=== PATIENT | male | born 1960 | race Two or more races ===

== ENCOUNTER 2024-06-26 17:57 | Inpatient (IN) | payer MEDICAID, OTHER ==
[~2024-06-26] VITALS: Ht 165.1 cm; Wt 94.5 kg
[2024-06-26] MEDS: IBUPROFEN 800 MG TAB PO ONE (21:12)
[2024-06-26] MEDS: HYDROcodone-ACET 10/325MG TAB PO ONE (23:32)
[2024-06-27] VITALS (8 sets, daily range): BP systolic 134–166; BP diastolic 61–80; PULSE 58–73; RESP 16–20; TEMP 97.7–98.9; O2SAT 95–98
[2024-06-27] MEDS: cefTRIAXone 1GM/50ML D5W 50 ML IV ONE (00:04)
[2024-06-27] MEDS ORDERED: ACETAMINOPHEN 325 MG TAB PO PRN (00:30)
[2024-06-27] MEDS ORDERED: DEXTROSE (50%) 50ML SYRG IV PRN ×2 (00:30→16:15)
[2024-06-27] MEDS ORDERED: ONDANSETRON HCL 4 MG/2 ML VIAL IV PRN (00:30)
[2024-06-27] MEDS ORDERED: TEMAZEPAM 15 MG CAP PO PRN (00:30)
[2024-06-27] MEDS ORDERED: VANCOMYCIN PER PHARMACY 0 MG IV SCH ×2 (00:30)
[2024-06-27 00:32] LABS: Basophils # (auto) 0 10 ^3/uL (0-0.2); Basophils % (auto) 0.6 % (0.0-2.0); Eosinophils # (auto) 0.1 10 ^3/uL (0-0.8); Eosinophils % (auto) 0.7 % (0.0-7.0); Hematocrit 33.8 % (41.0-53.0); Hemoglobin 11.7 g/dL (13.5-17.5); Lymphocytes # (auto) 1.9 10 ^3/uL (0.4-5.4); Lymphocytes % (auto) 25.1 % (10.0-50.0); Mean Corpuscular Hemoglobin 30.7 pg (28.0-32.0); Mean Corpuscular Hgb Conc. 34.5 g/dL (32.0-36.0); Mean Corpuscular Volume 88.9 fL (80.0-100.0); Monocytes # (auto) 0.7 10 ^3/uL (0-1.3); Monocytes % (auto) 8.7 % (0.0-12.0); Neutrophils # (auto) 4.9 10 ^3/uL (1.6-8.6); Neutrophils % (auto) 64.9 % (37.0-80.0); Nucleated Red Blood Cells % 0.1 %; Red Cell Distribution Width 13.7 % (11.8-14.3); White Blood Cell 7.5 10^3/uL (4.4-10.8)
[2024-06-27 00:41] LABS: Chloride 105 mmol/L (98-107); Potassium 4.1 mmol/L (3.5-5.1); Sodium 135 mmol/L (136-145)
[2024-06-27 00:42] LABS: Anion Gap 7 (5-15); Calcium 8.8 mg/dL (8.7-10.4); Carbon Dioxide 23 mmol/L (20-30)
[2024-06-27 00:47] LABS: BUN/Creatinine Ratio 15.1 (10.0-20.0); Blood Urea Nitrogen 13 mg/dL (9-23); Glucose 245 mg/dL (74-106)
[2024-06-27] MEDS: VANCOMYCIN 1GM/200ML 200 ML IV ONE (01:37)
[2024-06-27] MEDS: ACCU-CHEK COMFORT CURVE STRIP VI SCH ×2 (06:33→17:40)
[2024-06-27] MEDS: InsuLIN REG 1unit/0.01ml Soln (100units/ml) SC SCH ×2 (06:36→17:38)
[2024-06-27] MEDS: cefTRIAXone 1GM/50ML D5W 50 ML IV SCH (08:52)
[2024-06-27] MEDS: HYDROcodone-ACET 5/325MG TAB PO PRN (10:51)
[2024-06-27] MEDS ORDERED: VANCOMYCIN 1GM/200ML 200 ML IV SCH (14:00)
[2024-06-27] MEDS: hydrALAZINE HCL 20 MG/ML VL IV PRN (18:16)
[2024-06-27] MEDS ORDERED: LISI20TA56 PO (20:41)
[2024-06-27] MEDS ORDERED: METF-370 PO (20:41)
[2024-06-28 01:00] VITALS: BP 148/76; PULSE 73; RESP 20; TEMP 98.7; O2SAT 95
[2024-06-28 05:00] VITALS: BP 154/53; PULSE 65; RESP 19; TEMP 98.2; O2SAT 97
[2024-06-28 06:07] LABS: Basophils # (auto) 0 10 ^3/uL (0-0.2); Basophils % (auto) 0.3 % (0.0-2.0); Eosinophils # (auto) 0 10 ^3/uL (0-0.8); Eosinophils % (auto) 0.5 % (0.0-7.0); Hematocrit 36.3 % (41.0-53.0); Hemoglobin 12.6 g/dL (13.5-17.5); Lymphocytes # (auto) 1.9 10 ^3/uL (0.4-5.4); Lymphocytes % (auto) 22.8 % (10.0-50.0); Mean Corpuscular Hgb Conc. 34.7 g/dL (32.0-36.0); Mean Corpuscular Volume 89.2 fL (80.0-100.0); Monocytes # (auto) 0.6 10 ^3/uL (0-1.3); Monocytes % (auto) 7.8 % (0.0-12.0); Neutrophils # (auto) 5.7 10 ^3/uL (1.6-8.6); Neutrophils % (auto) 68.6 % (37.0-80.0); Red Blood Cells 4.07 10^6/uL (4.5-5.90); Red Cell Distribution Width 13.4 % (11.8-14.3); White Blood Cell 8.3 10^3/uL (4.4-10.8)
[2024-06-28 06:13] LABS: Chloride 106 mmol/L (98-107); Sodium 137 mmol/L (136-145)
[2024-06-28 06:14] LABS: Anion Gap 9 (5-15); Carbon Dioxide 22 mmol/L (20-30)
[2024-06-28 06:15] LABS: Calcium 9.4 mg/dL (8.7-10.4)
[2024-06-28 06:19] LABS: Glucose 199 mg/dL (74-106)
[2024-06-28 06:20] LABS: BUN/Creatinine Ratio 9.6 (10.0-20.0); Blood Urea Nitrogen 7 mg/dL (9-23)
[2024-06-28] MEDS ORDERED: GLIP5TAB21 PO (07:35)
[2024-06-28 08:49] VITALS: BP 151/74; PULSE 58; RESP 16; TEMP 98.4; O2SAT 96
[2024-06-28] MEDS: DOCUSATE SOD 100 MG CAP PO ONE (12:46)
[2024-06-28] MEDS: LACTULOSE 20Gm/30ML SOLN PO ONE (12:46)
[2024-06-28 13:00] VITALS: BP 142/67; PULSE 57; RESP 17; TEMP 98.6; O2SAT 96
[2024-06-28 17:02] VITALS: BP 148/81; PULSE 64; RESP 19; TEMP 97.7; O2SAT 98
[2024-06-28 21:00] VITALS: BP 165/64; PULSE 63; RESP 18; TEMP 98.4; O2SAT 92
[2024-06-28] MEDS: DOCUSATE SOD 100 MG CAP PO SCH (21:42)
[2024-06-29 01:00] VITALS: BP 141/61; PULSE 64; RESP 20; TEMP 98.7; O2SAT 98
[2024-06-29 04:59] VITALS: BP 145/70; PULSE 81; RESP 18; TEMP 98.5; O2SAT 97
[2024-06-29 09:00] VITALS: BP 149/64; PULSE 76; RESP 17; TEMP 98.7; O2SAT 97
[2024-06-29] MEDS ORDERED: GLIP5TAB21 PO (12:40)
[2024-06-29] MEDS ORDERED: AUG875T PO (12:40)
[2024-06-29] MEDS ORDERED: METF-370 PO (12:40)
[2024-06-29] MEDS ORDERED: LISI20TA56 PO (12:40)
[2024-06-29 13:07] VITALS: BP 146/53; PULSE 65; RESP 17; TEMP 98; O2SAT 97
== END 2024-06-29 15:35 | disposition home or self-care (01) | DRG 113 ==
LOC: ER 17:57 → OVERFLOW 06-27 00:28 → WEST WING 06-27 03:20
PROVIDERS: ADMIT Internal Medicine Geriatric Medicine; ATTEND Internal Medicine Geriatric Medicine
DX: H70.002 Acute mastoiditis without complications, left ear (principal); E11.9 Type 2 diabetes mellitus without complications; E66.9 Obesity, unspecified; I10 Essential (primary) hypertension; M10.9 Gout, unspecified; Z68.34 Body mass index [BMI] 34.0-34.9, adult
CPT/HCPCS: 36415; 70450; 70486; 80048; 80202; 82962; 83036; 83605; 85025; G0378; J1815

== ENCOUNTER 2024-08-22 12:13 | Emergency (ER) | payer MEDICAID ==
[~2024-08-22] VITALS: Ht 165.1 cm; Wt 87.0 kg
[~2024-08-22 12:13] MED LIST: AUG875T PO; GLIP5TAB21 PO; LISI20TA56 PO; METF-370 PO
[2024-08-22 13:31] LABS: Urine Bacteria None Seen /hpf (None Seen)
[2024-08-22 13:55] LABS: Urine Blood TRACE /uL (Negative); Urine Clarity Clear (Clear); Urine Color Yellow (Yellow); Urine Protein, UAD 3+ (Negative); Urine Specific Gravity 1.017 (1.001-1.035); Urine Urobilinogen Normal (Negative); Urine WBC 5 /hpf (0 - 3); Urine pH 5.5 (5.0-9.0)
[2024-08-22 14:30] LABS: Basophils # (auto) 0 10 ^3/uL (0-0.2); Basophils % (auto) 0.5 % (0.0-2.0); Eosinophils # (auto) 0.1 10 ^3/uL (0-0.8); Eosinophils % (auto) 1.2 % (0.0-7.0); Hematocrit 36.8 % (41.0-53.0); Lymphocytes # (auto) 2.1 10 ^3/uL (0.4-5.4); Lymphocytes % (auto) 22.7 % (10.0-50.0); Mean Corpuscular Hemoglobin 30.2 pg (28.0-32.0); Mean Corpuscular Hgb Conc. 35.3 g/dL (32.0-36.0); Mean Corpuscular Volume 85.5 fL (80.0-100.0); Monocytes # (auto) 0.6 10 ^3/uL (0-1.3); Monocytes % (auto) 6.7 % (0.0-12.0); Neutrophils # (auto) 6.5 10 ^3/uL (1.6-8.6); Neutrophils % (auto) 68.9 % (37.0-80.0); Nucleated Red Blood Cells % 0.1 %; Platelet Count (auto) 199 10^3/uL (140-450); Red Cell Distribution Width 13.7 % (11.8-14.3); White Blood Cell 9.4 10^3/uL (4.4-10.8)
[2024-08-22 15:10] LABS: Alanine Aminotransferase 20 U/L (7-40); Albumin 4.1 g/dL (3.2-4.8); Alkaline Phosphatase 88 U/L (46-116); Anion Gap 7 (5-15); Aspartate Aminotransferase 16 U/L (13-40); BUN/Creatinine Ratio 20.2 (10.0-20.0); Blood Urea Nitrogen 17 mg/dL (9-23); Calcium 9.3 mg/dL (8.7-10.4); Carbon Dioxide 24 mmol/L (20-30); Chloride 109 mmol/L (98-107); Glucose 87 mg/dL (74-106); Lipase 25 U/L (12-53); Potassium 4.1 mmol/L (3.5-5.1); Sodium 140 mmol/L (136-145)
[2024-08-22 15:11] LABS: Bilirubin, Total 0.4 mg/dL (0.2-1.0); Total Protein 6.6 g/dL (5.7-8.2)
[2024-08-22] MEDS: cefTRIAXone 1GM/50ML D5W 50 ML IV ONE (18:42)
[2024-08-22] MEDS: DexAMETHasone SOD PHOS 10MG/1ML VIAL INJ IM ONE (18:42)
[2024-08-22] MEDS: HYDROcodone-ACET 5/325MG TAB PO ONE (18:42)
[2024-08-22] MEDS: KETOROLAC TROMETH 30 MG/ML 1ML VIAL IV ONE (18:43)
[2024-08-22 18:50] VITALS: BP 175/65; PULSE 66; RESP 18; TEMP 97.8; O2SAT 98
[2024-08-22] MEDS: FUROSEMIDE 20 MG/2 ML VIAL IV ONE (18:50)
== END 2024-08-22 19:00 | disposition home or self-care (01) ==
LOC: ER 12:13
DX: N39.0 Urinary tract infection, site not specified (principal); J90 Pleural effusion, not elsewhere classified; I10 Essential (primary) hypertension; E11.9 Type 2 diabetes mellitus without complications; Z79.84 Long term (current) use of oral hypoglycemic drugs; Z79.899 Other long term (current) drug therapy; Z98.890 Other specified postprocedural states
CPT/HCPCS: 36415; 74176; 80053; 81001; 83605; 83690; 84484; 85025; 96365; 96372; 96375; 99285; J0696; J1100; J1885; J1940